=== PATIENT | male | born 1955 | race Caucasian/White ===

== ENCOUNTER 2017-09-29 18:25 | Emergency (ER) | payer OTHER ==
[~2017-09-29] VITALS: Ht 182.9 cm; Wt 104.0 kg
[~2017-09-29 18:25] MED LIST: AUGMENTIN875TAB PO; BENZONATATE200 MG PO; DOXYCYCL HYC100 MG PO; LISINOP/HCTZ1 TA1 OR; LISINOP/HCTZ1 TAB PO; MAXEPA1000 M1 PO; NAPROSYN500 MG PO; PRAVASTATIN40 MG PO; SIMVASTATIN40 MG PO
[2017-09-29] MEDS ORDERED: LORTAB 1010 MG PO (19:19)
[2017-09-29 19:30] VITALS: BP 144/89
== END 2017-09-29 19:30 | disposition home or self-care (01) | DRG 605 ==
LOC: ED 18:25
DX: S40.012A Contusion of left shoulder, initial encounter (principal); W11.XXXA Fall on and from ladder, initial encounter; Y93.89 Activity, other specified; Y92.009 Unspecified place in unspecified non-institutional (private) residence as the place of occurrence of the external cause